=== PATIENT | female | born 1955 | race Caucasian/White ===

== ENCOUNTER 2016-05-24 20:40 | Emergency (ER) | payer BC, OTHER ==
[~2016-05-24] VITALS: Ht 172.7 cm; Wt 110.0 kg
[~2016-05-24 20:40] MED LIST: ACIP20TA19 PO; COUM1TAB PO; LORT5TAB PO; LOTR5CAP2 PO
[2016-05-24 20:41] VITALS: BP 190/108; PULSE 98; RESP 18; TEMP 98.1; O2SAT 99
[2016-05-25] MEDS ORDERED: HYDR12.57 PO (00:44)
[2016-05-25] MEDS ORDERED: LOTR5CAP3 PO (00:44)
[2016-05-25] MEDS ORDERED: ACIP20TA6 PO (00:44)
[2016-05-25] MEDS ORDERED: INFL100P IV (00:48)
[2016-05-25 01:10] VITALS: BP 125/76; PULSE 55; RESP 18; O2SAT 96
--- NOTE | 2016-05-25 01:45 | RADRPT ---
EXAM DATE/TIME: 05/25/2016 01:34 [facility] COMPARISON: No previous studies available for comparison. INDICATIONS : Dizziness. RADIATION DOSE: 37.49 CTDIvol (mGy) MEDICAL HISTORY : Hypertension. Crohns disease. SURGICAL HISTORY : None. ENCOUNTER: Initial ACUITY: 1 day PAIN SCALE: 0/10 LOCATION: cranial TECHNIQUE: Multiple contiguous axial images were obtained of the head. Using automated exposure control and adj ustment of the mA and/or kV according to patient size, radiation dose was kept as low as reasonably a chievable to obtain optimal diagnostic quality images. FINDINGS: CEREBRUM: The ventricles are normal for age. No evidence of midline shift, mass lesion, hemorrhage or acute in farction. No extra-axial fluid collections are seen. POSTERIOR FOSSA: The cerebellum and brainstem are intact. The 4th ventricle is midline. The cerebellopontine angle i s unremarkable. EXTRACRANIAL: The visualized portion of the orbits is intact. SKULL: The calvaria is intact. No evidence of skull fracture. CONCLUSION: Normal examination for a patient of this age. Link Braun MD on May 25, 2016 at 1:43 Board Certified Radiologist. This report was verified electronically.
--- NOTE | 2016-05-25 02:09 | RADRPT ---
EXAM DATE/TIME: 05/25/2016 01:51 [facility] COMPARISON: No previous studies available for comparison. INDICATIONS : Cough. MEDICAL HISTORY : Hypertension. Crohn's disease. SURGICAL HISTORY : None. ENCOUNTER: Initial ACUITY: 1 day PAIN SCORE: 0/10 LOCATION: Bilateral chest FINDINGS: A single view of the chest demonstrates the lungs to be symmetrically aerated without evidence of mas s, infiltrate or effusion. The cardiomediastinal contours are unremarkable. Osseous structures are intact. CONCLUSION: Normal examination for a patient of this age. Link Braun MD on May 25, 2016 at 2:05 Board Certified Radiologist. This report was verified electronically.
--- NOTE | 2016-05-25 02:17 | PD ---
HPI Chief Complaint: Hypertension Time Seen by Provider: 00:43 Travel History International Travel<30 days: No Contact w/Intl Traveler<30days: No Traveled to known affect area: No History of Present Illness HPI The patient is a 60 year old female who presents to the [facility] emergency department with a history of elevated blood pressure that began today and was associated with a flushed sensation in her face and lightheaded sensation. She denies any changes in her bp medication regimen. She has had some increased stress recently related to a health concern and a breast biopsy that will be done this next week. She reports that she did not eat lunch yesterday due to poor choices at the cafeteria, however otherwise she has been eating and drinking well. She denies having any headache, numbness or tingling to her extremities, one-sided weakness, facial droop, difficulty with word finding ability, or vertigo. The patient denies any recent fevers, cough, congestion, neck pain, chest pain, shortness of breath, abdominal pain, vomiting , diarrhea, or urinary symptoms. [facility] Past Medical History Narrative Medical The patient's past medical history is significant for hypertension, vertigo, Crohn's disease, and hip and back pain. PCP: Dr. Jag Cole. Neurologist: Dr. Puga. Gastrointestinal Disorders: Yes (CROHN'S DISEASE) Medical other: Yes (VERTIGO) Immunizations Current: Yes Influenza Vaccination: Yes Menopausal: Yes : 2 Para: 2 Past Surgical History Narrative Surgical The patient's past surgical history is significant for laparoscopic abdominal sx , sinus sx. Abdominal Surgery: Yes (LAPROSCOPY) Genitourinary Surgery: Yes (BLADDER SLING) Other Surgery: Yes (GANGLION CYST REMOVAL, SINUS SURGERY) Social History Alcohol Use: No Tobacco Use: No Substance Use: No Allergies-Medications (Allergen,Severity, Reaction): Coded Allergies: Flagyl (Verified Allergy, Severe, Diarrhea, 05/24/16) Imuran (Verified Allergy, Unknown, "FEEL LOOPY", 05/24/16) Reported Meds & Prescriptions Reported Meds & Active Scripts Active Reported Remicade Inj (Infliximab) 100 Mg Inj 100 Mg IV Q8 WEEKS Hydrochlorothiazide 12.5 Mg Cap 12.5 Mg PO DAILY Aciphex (Rabeprazole Sodium) 20 Mg Tab 20 Mg PO DAILY Lotrel (Amlodipine-Benazepril) 5-20 Mg Cap 1 Cap PO DAILY Review of Systems Except as stated in HPI: all other systems reviewed are Neg General / Constitutional: No: Fever Eyes: No: Visual changes HENT: Positive: Lightheadedness, No: Headaches Cardiovascular: No: Chest Pain or Discomfort Respiratory: No: Shortness of Breath Gastrointestinal: No: Abdominal Pain Genitourinary: No: Dysuria Musculoskeletal: No: Pain Skin: No Rash Neurologic: No: Weakness, Focal Abnormalities, Change in Mentation, Sensory Disturbance Psychiatric: No: Depression Endocrine: No: Polydipsia Hematologic/Lymphatic: No: Easy Bruising Physical Exam Narrative General: The patient is a well-developed well-nourished female in no acute distress. Head and Neck exam: Head is normocephalic atraumatic. Eyes: Pupils are equal round and reactive to light. Nose: Midline septum with pink mucous membranes Mouth: Dentition unremarkable. Moist mucus membranes. Posterior oropharynx is not erythematous. No tonsillar hypertrophy. Uvula midline. Airway patent. Neck: No palpable lymphadenopathy. No nuchal rigidity. No thyromegaly. Cardiovascular: Regular rate and rhythm without murmurs, gallops, or rubs. No pulse deficit to the extremities and simultaneous auscultation and palpation of her radial artery.. Lungs: Clear to auscultation bilaterally. No wheezes, rhonchi, or rales. Abdomen: Soft, without tenderness to palpation in all 4 quadrants of the abdomen. No guarding, rebound, or rigidity. Normal bowel sounds are audible. Extremities: No clubbing, cyanosis, or edema. 2+ pulses in all 4 extremities. Back: No spinous process tenderness to palpation. No costovertebral angle tenderness to palpation. Neurologic Exam: Grossly nonfocal. Skin Exam: No rash noted. Intact skin that is warm and dry. Data Data Last Documented VS Vital Signs Date Time Temp Pulse Resp B/P Pulse Ox O2 Delivery O2 Flow Rate FiO2 05/25/16 01:10 55 18 125/76 96 Room Air 05/24/16 20:41 98.1 Orders Electrocardiogram (05/25/16 01:07) Complete Blood Count With Diff (05/25/16 01:07) Basic Metabolic Panel (Bmp) (05/25/16 01:07) Creatine Kinase (Cpk) (05/25/16 01:07) Ckmb (Isoenzyme) Profile (05/25/16 01:07) Troponin I (05/25/16 01:07) Prothrombin Time / Inr (Pt) (05/25/16 01:07) Act Partial Throm Time (Ptt) (05/25/16 01:07) Urinalysis - C+S If Indicated (05/25/16 01:07) Magnesium (Mg) (05/25/16 01:07) Thyroid Stimulating Hormone (05/25/16 01:07) Chest, Single Ap (05/25/16 01:07) Ct Brain W/O Iv Contrast(Rout) (05/25/16 01:07) Iv Access Insert/Monitor (05/25/16 01:07) Ecg Monitoring (05/25/16 01:07) Oximetry (05/25/16 01:07) Sodium Chlorid 0.9% 500 Ml Inj (Ns 500 M (05/25/16 02:30) CKMB (05/25/16 02:25) CKMB% (05/25/16 02:25) Labs Laboratory Tests Test 05/25/16 05/25/16 02:20 02:25 Urine Color LIGHT-YELLOW Urine Turbidity CLEAR Urine pH 7.0 Urine Specific [place] 1.010 Urine Protein NEG mg/dL Urine Glucose (UA) NEG mg/dL Urine Ketones NEG mg/dL Urine Occult Blood NEG Urine Nitrite NEG Urine Bilirubin NEG Urine Urobilinogen LESS THAN 2.0 MG/DL Urine Leukocyte Esterase NEG Urine RBC 1 /hpf Urine WBC 1 /hpf Urine Squamous Epithelial 1 /hpf Cells Urine Renal Epithelial Cells <1 /hpf Microscopic Urinalysis Comment CULT NOT INDICATED White Blood Count 9.6 TH/MM3 Red Blood Count 4.58 MIL/MM3 Hemoglobin 13.6 GM/DL Hematocrit 39.7 % Mean Corpuscular Volume 86.6 FL Mean Corpuscular Hemoglobin 29.7 PG Mean Corpuscular Hemoglobin 34.3 % Concent Red Cell Distribution Width 13.1 % Platelet Count 271 TH/MM3 Mean Platelet Volume 8.7 FL Neutrophils (%) (Auto) 52.7 % Lymphocytes (%) (Auto) 35.0 % Monocytes (%) (Auto) 8.6 % Eosinophils (%) (Auto) 2.6 % Basophils (%) (Auto) 1.1 % Neutrophils # (Auto) 5.1 TH/MM3 Lymphocytes # (Auto) 3.4 TH/MM3 Monocytes # (Auto) 0.8 TH/MM3 Eosinophils # (Auto) 0.3 TH/MM3 Basophils # (Auto) 0.1 TH/MM3 CBC Comment DIFF FINAL Differential Comment Prothrombin Time 10.8 SEC Prothromb Time International 1.0 RATIO Ratio Activated Partial 28.4 SEC Thromboplast Time Sodium Level 141 MEQ/L Potassium Level 3.8 MEQ/L Chloride Level 106 MEQ/L Carbon Dioxide Level 29.2 MEQ/L Anion Gap 6 MEQ/L Blood Urea Nitrogen 19 MG/DL Creatinine 1.18 MG/DL Estimat Glomerular Filtration 47 ML/MIN Rate Random Glucose 97 MG/DL Calcium Level 9.2 MG/DL Magnesium Level 2.1 MG/DL Total Creatine Kinase 118 U/L Creatine Kinase MB 0.7 NG/ML Troponin I LESS THAN 0.02 NG/ML Thyroid Stimulating Hormone 1.250 uIU/ML 3rd Gen [facility] Medical Decision Making Medical Screen Exam Complete: Yes Emergency Medical Condition: Yes Medical Record Reviewed: Yes Interpretation(s) Last Impressions Head CT 05/25/16106 Signed Impressions: Service Date/Time: Wednesday, May 25, 2016 01:34 - CONCLUSION: Normal examination for a patient of this age. Link Braun MD Chest X-Ray 05/25/16106 Signed Impressions: Service Date/Time: Wednesday, May 25, 2016 01:51 - CONCLUSION: Normal examination for a patient of this age. Link Braun MD Differential Diagnosis intracranial hemorrhage, versus dehydration, versus stress induced hypertension , due to dietary induced hypertension. Narrative Course During the course of the patients emergency department visit, the patients history, examination, and differential diagnosis were reviewed with the patient. The patient had IV access obtained and blood work sent for analysis. The patient was placed on a diver tender with oximetry and blood pressure monitoring. An EKG was done on arrival. The patient had a sinus bradycardia heart rate of 58, no acute ST segment changes are noted. No ST segment elevation. The patient reports that her heart rate is normally in the 60s. Throughout her observation it was in the 60s to 70s. The patient was provided normal saline a 500 mL bolus 1. The patients laboratory studies were reviewed and remarkable for a CBC that is unremarkable. CMP is remarkable for BUN of 19, creatinine 1.18, cardiac enzymes are unremarkable, TSH 1.25, PT PTT unremarkable, urinalysis unremarkable. Radiology studies were reviewed and remarkable for a chest x-ray and CT scan of the brain that showed no acute abnormality. I discussed the patient's results with her. The patient's symptoms could be related to her recent increased stress over having her breast biopsy done, versus lightheaded sensation related to not eating lunch yesterday. The patient 's blood pressure elevation resolved. The patient's symptoms improved. The patient will be discharged home. The patient is resting comfortably and feels better, is alert and in no distress. The patients results and examination findings were discussed with the patient. The repeat examination is unremarkable and benign. The history, exam, diagnostic testing, and current condition do not suggest any significant pathology to warrant further testing, continued ED treatment, admission, or surgical evaluation at this point. The vital signs have been stable. The patient does not have uncontrollable pain, intractable vomiting, or other significant symptoms. The patient's condition is stable and appropriate for discharge. The patient will pursue further outpatient evaluation with a primary care physician or other designated or consulting physician as indicated in the discharge instructions. The patient expressed understanding and was agreeable with this plan. Diagnosis Primary Impression: Hypertension Qualified Code: I10 - Essential hypertension Additional Impression: Lightheadedness Referrals: Primary Care Physician 2 days Patient Instructions: General Instructions, Hypertension (ED), Lightheadedness (ED) Med/Other Pt SpecificInfo: No Change to Meds Disposition: 01 DISCHARGE HOME Condition: Stable Zamzam Gibson MD May 25, 2016 02:17
[2016-05-25] MEDS ORDERED: SODIUM CHLORID 0.9% 500 ML INJ 500 ML IV ONE (02:30)
[2016-05-25 02:39] LABS: AUTOMATED NEUTROPHIL # 5.1 TH/MM3 (1.8-7.7); BASOPHIL # 0.1 TH/MM3 (0-0.2); BASOPHIL % 1.1 % (0.0-2.0); EOSINOPHIL # 0.3 TH/MM3 (0-0.4); EOSINOPHIL % 2.6 % (0.0-4.0); HEMATOCRIT 39.7 % (35.0-46.0); HEMO FLAGS DIFF FINAL; LYMPHOCYTE # 3.4 TH/MM3 (1.0-4.8); MEAN CELL VOLUME 86.6 FL (80.0-100.0); MEAN CORPUSCULAR HEMOGLOBIN 29.7 PG (27.0-34.0); MEAN CORPUSCULAR HGB CONC 34.3 % (32.0-36.0); MONO % 8.6 % (0.0-8.0); NEUT % 52.7 % (16.0-70.0); PLATELET COUNT 271 TH/MM3 (150-450); RED BLOOD COUNT 4.58 MIL/MM3 (4.00-5.30); RED CELL DISTRIBUTION WIDTH 13.1 % (11.6-17.2); WHITE BLOOD COUNT 9.6 TH/MM3 (4.0-11.0)
[2016-05-25 02:40] LABS: BLOOD, URINE NEG (NEG); GLUCOSE,URINE NEG (NEG); KETONE, URINE NEG (NEG); NITRITE,URINE NEG (NEG); RENAL EPITHELIAL CELLS <1 /hpf; SQUAMOUS EPITHELIAL CELL URINE 1 /hpf (0-5); URINE COLOR LIGHT-YELLOW (YELLW/STRAW)
[2016-05-25 02:46] LABS: COMMENT (UR) CULT NOT INDICATED; CULTURE IF INDICATED CULT NOT INDICATED
[2016-05-25 02:48] LABS: APTT (PATIENT) 28.4 SEC (24.3-30.1); PROTHROMBIN TIME - PATIENT 10.8 SEC (9.8-11.6)
[2016-05-25 03:23] LABS: ANION GAP 6 MEQ/L (5-15); BICARBONATE 29.2 MEQ/L (21.0-32.0); BLOOD UREA NITROGEN 19 MG/DL (7-18); CHLORIDE 106 MEQ/L (98-107); GLOMERULAR FILTRATION RATE 47 ML/MIN (>89); MAGNESIUM 2.1 MG/DL (1.5-2.5); POTASSIUM 3.8 MEQ/L (3.5-5.1); SODIUM (NA) 141 MEQ/L (136-145)
[2016-05-25 03:31] LABS: CREATINE KINASE 118 U/L (26-192)
[2016-05-25 03:44] LABS: CKMB 0.7 NG/ML (0.5-3.6)
[2016-05-25 04:16] VITALS: BP 125/62
--- NOTE | 2016-05-25 08:45 | EKG ---
Date Performed: 05/25/2016 Time Performed: 01:47:13 PTAGE: 60 years EKG: SINUS BRADYCARDIA BORDERLINE ECG NO SIGNIFICANT CHANGE FROM PRIOR ELECTROCARDIOGRAM. PREVIOUS TRACING : 03/28/2000 08.41 DOCTOR: Morris Jasos Interpretating Date/Time 05/25/2016 08:43:48
== END 2016-05-25 04:38 | disposition home or self-care (01) ==
LOC: NEPE 20:40
DX: I10 Essential (primary) hypertension (principal); R42 Dizziness and giddiness; R23.2 Flushing; R94.31 Abnormal electrocardiogram [ECG] [EKG]; Z87.19 Personal history of other diseases of the digestive system; Z87.39 Personal history of other diseases of the musculoskeletal system and connective tissue
CPT/HCPCS: 70450; 71010; 80048; 81001; 82550; 82552; 83735; 84443; 84484; 85025; 85610; 85730; 93005; 96360; 99284; J7040

== ENCOUNTER 2016-06-30 07:38 | Day surgery (SDC) | payer OTHER ==
[~2016-06-30] VITALS: Ht 172.7 cm; Wt 104.5 kg
[~2016-06-30 07:38] MED LIST changes: -ACIP20TA19 PO; +ACIP20TA6 PO; -COUM1TAB PO; +HYDR12.57 PO; +INFL100P IV; -LORT5TAB PO; -LOTR5CAP2 PO; +LOTR5CAP3 PO
[2016-06-30 07:57] VITALS: BP 152/97; PULSE 57; RESP 20; TEMP 98.7; O2SAT 99
[2016-06-30] MEDS ORDERED: NAPR250T PO (08:07)
[2016-06-30] MEDS ORDERED: MULT-120 PO (08:07)
[2016-06-30 09:00] VITALS: BP 113/64; PULSE 55; RESP 16; TEMP 98.7; O2SAT 99
--- NOTE | 2016-06-30 09:01 | PD.RAD ---
Post Procedure Progress Note Pre Procedure Diagnosis: (1) Multiple sclerosis Post Procedure Diagnosis: (1) Multiple sclerosis Procedure Date: Jun 30, 2016 Supervising Radiologist: Bernard Jimenez Estimated blood loss: None Anesthesia: Local Plan of Activity Patient to Unit: ROPU Patient Condition: Good Additional Comments: Pt post LP. Single puncture at L4. 20cc of clear CSF removed. See PACS Report for procedural detail/treatment Bernard Jimenez MD Jun 30, 2016 09:00
--- NOTE | 2016-06-30 09:53 | RADRPT ---
EXAM DATE/TIME: 06/30/2016 08:45 [facility] COMPARISON: No previous studies available for comparison. INDICATIONS : Patient with a history of multiple sclerosis. MEDICAL HISTORY : Hip pain Vertigo TENZIN Bilateral lower extremity weakness SURGICAL HISTORY : Sinus surgery ENCOUNTER: Initial ACUITY: > 1 year PAIN SCORE: 0/10 LUMBAR PUNCTURE TIME: 0852 hours FLUORO TIME: 0.8 minutes IMAGE SERIES: ACCESS LEVEL: L4-5 FLUID: 19 cc of clear CSF was collected and sent to the laboratory for analysis. PROCEDURE : 1. Fluoroscopic guided lumbar puncture. The risks, benefits and alternatives to the procedure were explained and verbal and written consent w as obtained. The site was prepped in sterile fashion. Full sterile technique was used, including ca p, mask, sterile gloves and gown and a large sterile sheet. Hand hygiene and 2% chlorhexidine and/or betadine/alcohol prep was utilized per protocol for cutaneous antisepsis. The skin and subcutaneous tissues were infiltrated with local anesthetic solution. With fluoroscopic guidance the lumbar thecal sac was punctured at the level above. The fluid describ ed above was removed without difficulty. The patient tolerated the procedure well and there were no complications. CONCLUSION: Uncomplicated fluoroscopically guided lumbar puncture. Bernard Jimenez MD on June 30, 2016 at 9:51 Board Certified Radiologist. This report was verified electronically.
[2016-06-30 10:32] LABS: GROSS BLOOD TUBE #1 0 (0); GROSS BLOOD TUBE #2 0 (0); SUPERNATE COLOR TUBE #1 CLEAR (CLEAR); SUPERNATE COLOR TUBE #2 CLEAR (CLEAR); VOLUME TUBE # 1 5.2 ML; VOLUME TUBE # 2 4.1 ML; VOLUME TUBE # 3 4.7 ML
[2016-06-30 10:33] LABS: CSF NEUTROPHILS 0 %; GROSS BLOOD TUBE #3 0 (0); GROSS BLOOD TUBE #4 0 (0); SUPERNATE COLOR TUBE #3 CLEAR (CLEAR); SUPERNATE COLOR TUBE #4 CLEAR (CLEAR); VOLUME TUBE # 4 4.9 ML; WBC TUBE #4 6 /MM3 (0-10)
[2016-06-30 10:34] LABS: CSF LYMPHOCYTES 82 %; CSF MONOCYTES 18 %
[2016-06-30 10:49] VITALS: BP 130/72; PULSE 58; RESP 16; O2SAT 99
[2016-07-01 16:13] LABS: ALBUMIN SERUM 4160 mg/dL (3200 - 4800); IGG CSF 2.6 mg/dL (<=8.1); IGG SERUM 1320 mg/dL (767 - 1590); IGG/ALBUMIN CSF 0.16 (<=0.21); IGG/ALBUMIN SERUM 0.32 (<=0.40); OLIGOCLONAL BANDING CSF 10 bands (()); OLIGOCLONAL BANDING INTERPRET 0 bands (<4); OLIGOCLONAL BANDING SERUM 10 bands (())
[2016-07-02 19:52] LABS: VDRL CSF NON-REACTIVE (())
[2016-07-03 09:13] LABS: CSF CRYPTOCOCCUS AG CONF ND (NOT DETECTD)
[2016-07-03 15:50] LABS: B. BURGDORFERI DNA PCR CSF NOT DETECTED (())
== END 2016-06-30 10:59 | disposition home or self-care (01) ==
LOC: HROP 07:38 → HRIP 07:43 → HROP 10:59
PROVIDERS: ATTEND Specialist
DX: G35 Multiple sclerosis (principal); M25.559 Pain in unspecified hip; G47.33 Obstructive sleep apnea (adult) (pediatric)
CPT/HCPCS: 62270; 77003; 82040; 82042; 82784; 82945; 83873; 83916; 84157; 86403; 86592; 87070; 87102; 87205; 87206; 87801; 89051